=== PATIENT | male | born 1950 | race Caucasian/White ===

== ENCOUNTER 2018-01-21 14:01 | Outpatient (CLI) | payer MEDICARE, MEDICAID ==
[~2018-01-21] VITALS: Ht 167.6 cm; Wt 101.2 kg
[2018-01-21 14:05] VITALS: BP 141/75
[2018-01-21] MEDS ORDERED: PLAVIX75 MG ORAL (14:44)
[2018-01-21] MEDS ORDERED: METFORMIN500 MG/5 M PO (14:44)
[2018-01-21] MEDS ORDERED: METOPROLOL SUCC25 MG ORAL (14:44)
[2018-01-21] MEDS ORDERED: ASPIR 8181 MG ORAL (14:44)
[2018-01-21] MEDS ORDERED: ZANTAC150 MG ORAL (14:44)
--- NOTE | 2018-01-21 14:48 | GI Initial Consult Note ---
History of Present Illness General Date patient seen: Jan 21, 2018 Time patient seen: 14:41 Referring physician: EMILIO Reason for Consultation: ABDOMINAL PAIN, GERD Present Illness HPI 67 year old male presents today with c/o of abdominal pain, GERD, possible ? colitis. Denied any constipation or diarrhea. State his last colonoscopy was approximately [address] showed patient had gallstones. Denies any unintentional weight loss or changes in dietary habits. No signs of abuse or neglect. Patient is not fall risk. Home Meds Reported Medications Metoprolol Succinate* (METOPROLOL SUCCINATE*) 25 Mg Tab.er.24h, 25 MG ORAL DAILY , TAB 01/21/18 Clopidogrel Bisulfate* (PLAVIX*) 75 Mg Tablet, 75 MG ORAL DAILY, TAB 01/21/18 Aspirin* (ASPIR 81*) 81 Mg Tablet.dr, 81 MG ORAL DAILY, TAB 01/21/18 Metformin HCl (Metformin HCl) 500 Mg/5 Ml Solution, 500 MG PO 01/21/18 Ranitidine Hcl* (ZANTAC*) 150 Mg Tablet, 150 MG ORAL TWICE A DAY, TAB 01/21/18 Med list reviewed/reconciled: Yes Allergies: Coded Allergies: No Known Allergies (Unverified , 01/21/18) Patient History History Provided By: Patient, Medical Record PMH Narrative Gallstone CAD HTN DM Social History: Reports: smoking - quit, other - caffeine Review of Systems All Other Systems: negative except mentioned in HPI Physical Exam T 98.2 BP 141/25 P 86 96 RA HT 5'6 WT 223 lbs Sp02 EP Interpretation: reviewed, normal General Appearance: well appearing, no apparent distress, alert Head: normocephalic EENT: PERRL/EOMI, normal ENT inspection Neck: supple Respiratory: normal breath sounds, no respiratory distress Cardiovascular: normal rate Gastrointestinal: normal inspection, non tender, soft, normal bowel sounds, non -distended Rectal: deferred Genitourinary: deferred Musculoskeletal: normal inspection, back normal Neurologic: normal inspection, alert, oriented x3, responsive, cerebellar normal Psychiatric: normal inspection, judgement/insight normal, memory normal Skin: normal inspection, normal color, no rash, warm/dry, palpation normal, well hydrated Lymphatic: normal inspection, no adenopathy GI: Plan Problems: (1) GERD (gastroesophageal reflux disease) (2) Gallstone (3) Colonoscopy refused Plan Rx omeprazole Gallstone >> no treatment at this time given patient is asymptomatic recommend screening colonoscopy, the patient states he will contact us for appointment. Patient is on Plavix, which must be dc 3 days prior procedure. Seen with Dr. Espinal. Thank you for this patient referral. The patient was seen and examined at bedside and all new and available data was reviewed in the patients chart. I agree with the above findings, impression and plan. (Patient seen earlier today. Signature stamp does not reflect patient encounter time.). - MD Dianna GoodmanSc[facility] BLUE[facility] GROWER Jan 21, 2018 14:47
== END 2018-01-21 14:31 | disposition home or self-care (01) ==
LOC: PAN 14:01
DX: K21.9 Gastro-esophageal reflux disease without esophagitis (principal); K80.80 Other cholelithiasis without obstruction; I25.10 Atherosclerotic heart disease of native coronary artery without angina pectoris; I10 Essential (primary) hypertension; E11.9 Type 2 diabetes mellitus without complications; Z87.891 Personal history of nicotine dependence
CPT/HCPCS: 99202

== ENCOUNTER 2018-08-04 08:23 | Day surgery (SDC) | payer MEDICARE, MEDICAID ==
[~2018-08-04] VITALS: Ht 175.3 cm; Wt 97.1 kg
[2018-08-04] VITALS (9 sets, daily range): BP systolic 118–153; BP diastolic 53–77
[~2018-08-04 08:23] MED LIST: ASPIR 8181 MG ORAL; METFORMIN500 MG/5 M PO; METOPROLOL SUCC25 MG ORAL; PLAVIX75 MG ORAL; ZANTAC150 MG ORAL
[2018-08-04] MEDS ORDERED: METFORMIN HCL500 M1 ORAL (08:52)
[2018-08-04] MEDS ORDERED: VASCEPA1 GM PO (08:54)
[2018-08-04] MEDS ORDERED: DEXILANT60 MG ORAL (08:55)
[2018-08-04] MEDS ORDERED: Succinylcholine 20mg/ml 10ml vial ONE (09:21)
--- NOTE | 2018-08-04 09:29 | Short Stay Surgery H&P ---
History of Present Illness History of Present Illness Chief Complaint see recent office note HPI Yevgeniy Thompson is a 68 year old male who was admitted on for Abdominal Pain, Gerd Patient History Allergies: Coded Allergies: No Known Allergies (Unverified , 08/04/18) Medication History Scheduled Aspirin* (Aspir 81*), 81 MG ORAL DAILY, (Reported) Clopidogrel Bisulfate* (Plavix*), 75 MG ORAL DAILY, (Reported) Dexlansoprazole (Dexilant), 60 MG ORAL DAILY, (Reported) Icosapent Ethyl (Vascepa), 1 GM PO DAILY, (Reported) Metformin Hcl* (Metformin Hcl*), 500 MG ORAL TWICE A DAY, (Reported) Metoprolol Succinate* (Metoprolol Succinate*), 25 MG ORAL DAILY, (Reported) Discontinued Medications Ranitidine Hcl* (Zantac*), 150 MG ORAL TWICE A DAY, (Reported) Discontinued Reason: Pt stopped taking med Physical Exam Vital Signs Last Vital Signs Date Time Temp Pulse Resp B/P (MAP) Pulse Ox O2 Delivery O2 Flow Rate FiO2 08/04/18 08:56 Room Air 08/04/18 08:48 97.6 66 18 153/77 98 Plan Attestation Are the patient's medical conditions optimized for surgery? Migel Espinal MD Aug 04, 2018 09:29
--- NOTE | 2018-08-04 09:29 | Pre-Procedure Note/Attestation ---
Pre-Procedure Note/Attestation Complete Prior to Procedure Planned Procedure: not applicable Procedure Narrative: esophagogastroduodenoscopy and colonoscopy Indications for Procedure Pre-Operative Diagnosis: GERDE, screening colon Attestation I attest that I discussed the nature of the procedure; its benefits; risks and complications; and alternatives (and the risks and benefits of such alternatives ), prior to the procedure, with the patient (or the patient's legal medical billing representative). I attest that, if there was a reasonable possibility of needing a blood transfusion, the patient (or the patient's legal medical billing representative) was given the [facility] of Health Services standardized written summary, pursuant to the [place] Blood Safety Act ([place] Health and Safety Code # 1645, as amended). I attest that I re-evaluated the patient just prior to the surgery and that there has been no change in the patient's H&P, except as documented below: Migel Espinal MD Aug 04, 2018 09:29
[2018-08-04] MEDS ORDERED: Propofol 200mg/20ml IV ONE ×2 (09:30)
[2018-08-04] MEDS ORDERED: Lidocaine 1% MPF 10mg/ml 5ml ONE ×2 (09:30)
--- NOTE | 2018-08-04 09:45 | Anethesia Preoperative Eval ---
Anesthesia Pre-op PMH/ROS General Date of Evaluation: Aug 04, 2018 Time of Evaluation: 09:31 Anesthesiologist: Siena Garcia CRNA ASA Score: ASA 3 Mallampati Score Class I : Soft palate, uvula, fauces, pillars visible Class II: Soft palate, uvula, fauces visible Class III: Soft palate, base of uvula visible Class IV: Only hard plate visible Mallampati Classification: Class III Surgeon: Kylie Diagnosis: colon screening Surgical Procedure: Diagnostic colonoscopy Anesthesia History: none Social History: smoking Family History: no anesthesia problems Allergies: Coded Allergies: No Known Allergies (Unverified , 08/04/18) Medications: see eMAR Patient NPO?: Yes NPO Date: Aug 04, 2018 NPO Time: 00:00 Past Medical History Cardiovascular: Reports: HTN, CAD, other - s/p cardiac cath, stent x 1; Denies: ID, valve dz, arrhythmia Gastrointestinal/Genitourinary: Reports: GERD Neurologic/Psychiatric: Denies: dementia, CVA, depression/anxiety, TIA, other Endocrine: Reports: DM; Denies: hypothyroidism, steroids, other HEENT: Denies: cataract (L), cataract (R), glaucoma, [place] (L), [place] (R), other Hematology/Immune: Denies: anemia, DVT, bleeding disorder, other Musculoskeletal/Integumentary: Reports: OA; Denies: RA, DJD, DDD, edema, other Other: obesity PMH Narrative: as noted above PSxH Narrative: cardiac cath Anesthesia Pre-op Phys. Exam Physician Exam Last Vital Signs Date Time Temp Pulse Resp B/P (MAP) Pulse Ox O2 Delivery O2 Flow Rate FiO2 08/04/18 08:56 Room Air 08/04/18 08:48 97.6 66 18 153/77 98 Constitutional: NAD Neurologic: other - alert & oriented Cardiovascular: RRR Respiratory: CTA Gastrointestinal: S/NT/ND Airway Exam Mallampati Score: Class III MO: full Neck: no limitations TMD: > 3 FB ROM: full Teeth: intact Dentures: no upper, no lower Anesthesia Pre-op A/P Labs Accucheck 116 Studies Pre-op Studies: EKG - SR with 1st degree AV block Risk Assessment & Plan Assessment: ASA 3, ok to proceed Plan: MAC Status Change Before Surgery: No Pre-Antibiotics Given Within 1 Hr of Incision: Siena Li CRNA Aug 04, 2018 09:45
--- NOTE | 2018-08-04 09:55 | Endoscopy Procedure Note ---
Endoscopy Procedure Note General Indication for Procedure: screening Procedures Performed: colonoscopy Operative Findings/Diagnosis: hemorrhoids Specimen: none Pt Tolerated Procedure Well: Yes Estimated Blood Loss: none Anesthesia Anesthesiologist: liat Anesthesia: MAC Inserted Devices Implant(s) used?: No Quality Quality of Bowel Preparation: Good Did scope reach the cecum?: Yes Was there any complications?: No GI Core Measures 50 yrs or older w/o bx or poly: No 10yrs. F/U not recommended: Yes If not recommended, why?: Above average risk 10 yrs. F/U needed: Yes 18 years or older w/prev. colo: No Migel Espinal MD Aug 04, 2018 09:55
--- NOTE | 2018-08-04 10:06 | Immediate Post-Op Evaluation ---
Immediate Post-Op Evalulation Immediate Post-Op Evalulation Procedure: Diagnostic colonoscopy Date of Evaluation: Aug 04, 2018 Time of Evaluation: 10:01 IV Fluids: 0.9 NS 400 ml Blood Pressure Systolic: 118 Blood Pressure Diastolic: 54 Pulse Rate: 60 Respiratory Rate: 16 O2 Sat by Pulse Oximetry: 98 Temperature (Fahrenheit): 97.6 Pain Score (1-10): 0 Nausea: No Vomiting: No Complications none Patient Status: awake, reacts Hydration Status: adequate Given Within 1 Hr of Incision: Siena Li CRNA Aug 04, 2018 10:06
--- NOTE | 2018-08-04 12:15 | Procedure Note ---
DATE OF PROCEDURE: 08/04/2018 SURGEON: Migel Espinal M.D. PROCEDURE: Colonoscopy. ANESTHESIA: Per Siena HANSON. INSTRUMENT: Olympus adult flexible colonoscope. INDICATION: Screening colonoscopy. REASON FOR PROCEDURE: The procedure, risks, benefits, and possible consequences, including hemorrhage, aspiration, perforation and infection, and alternative treatments, were explained to the patient/legal guardian by Dr. Migel Espinal and the patient/legal guardian understood and accepted these risks. PROCEDURE IN DETAIL: After informed consent was obtained and the patient was adequately sedated. First rectal exam was performed, which was positive for internal hemorrhoids. Then, the scope was advanced from rectum into the cecum documented by appendiceal orifice, ileocecal valve, and right upper quadrant palpation. Quality of prep was good. The patient had normal colonoscopy examination. No obvious mass, polyp, or any other pathology seen. Retroflexion of rectum showed evidence of internal hemorrhoids. The patient tolerated the procedure well without any complication. SUMMARY OF FINDINGS: Normal colonoscopy examination except for internal hemorrhoids. RECOMMENDATIONS: Repeat colonoscopy in five years. Migel Espinal M.D. DR: YUE JOB#: [id number] CC:
--- NOTE | 2018-08-04 13:09 | 48 Hour Post Anesthesia Eval ---
Post Anesthesia Evaluation Procedure: Diagnostic colonoscopy Date of Evaluation: Aug 04, 2018 Time of Evaluation: 13:08 Blood Pressure Systolic: 124 0: 53 Pulse Rate: 60 Respiratory Rate: 16 Temperature (Fahrenheit): 97.9 O2 Sat by Pulse Oximetry: 96 Airway: patent Nausea: No Vomiting: No Pain Intensity: 0 Hydration Status: adequate Cardiopulmonary Status: stable Mental Status/LOC: patient returned to baseline Follow-up Care/Observations: per GI Post-Anesthesia Complications: none Follow-up care needed: N/A Siena Garcia CRNA Aug 04, 2018 13:09
--- NOTE | 2018-08-06 13:20 | Cardiology Report ---
APPROVED REPORT EKG Measurement Heart [id number] NV [id number] Sinus rhythm with 1st degree AV block Otherwise normal ECG
== END 2018-08-04 11:10 | disposition home or self-care (01) ==
LOC: GAS 08:23
DX: Z12.11 Encounter for screening for malignant neoplasm of colon (principal); K64.8 Other hemorrhoids; Z79.82 Long term (current) use of aspirin; K21.9 Gastro-esophageal reflux disease without esophagitis; Z79.84 Long term (current) use of oral hypoglycemic drugs; E11.9 Type 2 diabetes mellitus without complications; I11.9 Hypertensive heart disease without heart failure; I25.10 Atherosclerotic heart disease of native coronary artery without angina pectoris; M19.90 Unspecified osteoarthritis, unspecified site; Z95.5 Presence of coronary angioplasty implant and graft; I44.0 Atrioventricular block, first degree
CPT/HCPCS: 82962; 93005; G0121; J0330; J2704; 94003; 94150

== ENCOUNTER 2020-02-01 12:57 | Outpatient (CLI) | payer MEDICARE, MEDICAID ==
[~2020-02-01 12:57] MED LIST changes: +DEXILANT60 MG ORAL; +METFORMIN HCL500 M1 ORAL; +VASCEPA1 GM PO
[2020-02-01 13:18] VITALS: BP 126/69
[2020-02-01] MEDS ORDERED: METFORMIN HCL1000 M1 ORAL (13:23)
--- NOTE | 2020-02-01 15:37 | General Progress Note ---
Subjective ROS Limited/Unobtainable: Yes Allergies: Coded Allergies: No Known Allergies (Unverified , 08/04/18) Objective Last 24 Hour Vital Signs Date Time Temp Pulse Resp B/P (MAP) Pulse Ox O2 Delivery O2 Flow Rate FiO2 02/01/20 13:18 97.1 77 16 126/69 98 General Appearance: alert EENT: PERRL/EOMI Neck: normal alignment Cardiovascular: normal rate Respiratory/Chest: decreased breath sounds Abdomen: soft, hypoactive bowel sounds, tender Extremities: non-tender Assessment/Plan Problem List: (1) GERD (gastroesophageal reflux disease) ICD Codes: K21.9 - Gastro-esophageal reflux disease without esophagitis SNOMED: 959934451 (2) Gallstone ICD Codes: K80.20 - Calculus of gallbladder without cholecystitis without obstruction SNOMED: 615418722 Assessment/Plan: s/p partial cholecystectomy elevayed LFTS RUQ pain CT reviewed repeat labs MRCP possible ERCP if needed Migel Espinal MD Feb 01, 2020 15:37
== END 2020-02-01 14:57 | disposition home or self-care (01) ==
LOC: PAN 12:57
DX: K21.9 Gastro-esophageal reflux disease without esophagitis (principal); K80.20 Calculus of gallbladder without cholecystitis without obstruction; Z90.49 Acquired absence of other specified parts of digestive tract; R94.5 Abnormal results of liver function studies; R10.11 Right upper quadrant pain
CPT/HCPCS: 99212

== ENCOUNTER 2020-02-29 13:03 | Outpatient (CLI) | payer MEDICARE, MEDICAID ==
[~2020-02-29 13:03] MED LIST changes: +METFORMIN HCL1000 M1 ORAL
--- NOTE | 2020-02-29 15:24 | General Progress Note ---
Subjective ROS Limited/Unobtainable: Yes Allergies: Coded Allergies: No Known Allergies (Unverified , 08/04/18) Objective General Appearance: alert EENT: normal ENT inspection Neck: supple Cardiovascular: normal rate Respiratory/Chest: lungs clear Abdomen: normal bowel sounds, non tender, soft Extremities: non-tender Assessment/Plan Assessment/Plan: Assessment/Plan Problem List: (1) GERD (gastroesophageal reflux disease) ICD Codes: K21.9 - Gastro-esophageal reflux disease without esophagitis SNOMED: 147369019 (2) Gallstone ICD Codes: K80.20 - Calculus of gallbladder without cholecystitis without obstruction SNOMED: 131780450 Assessment/Plan: s/p partial cholecystectomy elevayed LFTS>> improving RUQ pain CT reviewed MRCP reviewed D/W surg plan EGD and EUS Migel Espinal MD Feb 29, 2020 15:24
== END 2020-02-29 15:03 | disposition home or self-care (01) ==
LOC: PAN 13:03
DX: K21.9 Gastro-esophageal reflux disease without esophagitis (principal); K80.20 Calculus of gallbladder without cholecystitis without obstruction; Z90.49 Acquired absence of other specified parts of digestive tract; R79.89 Other specified abnormal findings of blood chemistry; R10.11 Right upper quadrant pain
CPT/HCPCS: 99212

== ENCOUNTER 2020-03-21 09:14 | Day surgery (SDC) | payer MEDICARE, MEDICAID ==
[2020-03-21] VITALS (9 sets, daily range): BP systolic 121–142; BP diastolic 59–84
[~2020-03-21] VITALS: Ht 182.9 cm; Wt 97.1 kg
[~2020-03-21 09:14] MED LIST changes: +LR 1000ml 1,000 ML IVLG SCH
[2020-03-21] MEDS ORDERED: Midazolam 2mg/2ml Inj ONE (10:12)
[2020-03-21] MEDS ORDERED: fentaNYL 100 mcg/2 mL IV ONE (10:12)
[2020-03-21] MEDS ORDERED: LR 1000ml ONE (10:30)
--- NOTE | 2020-03-21 10:30 | Short Stay Surgery H&P ---
History of Present Illness History of Present Illness Chief Complaint abd pain HPI Yevgeniy Thompson is a 69 year old male who was admitted on for Gerd, Abdominal Pain, Gall Stone Patient History Allergies: Coded Allergies: No Known Allergies (Unverified , 03/19/20) PAST MEDICAL HISTORY: (1) GERD (gastroesophageal reflux disease) (2) Gallstone Medication History Scheduled Aspirin* (Aspir 81*), 81 MG ORAL DAILY, (Reported) Clopidogrel Bisulfate* (Plavix*), 75 MG ORAL DAILY, (Reported) Dexlansoprazole (Dexilant), 60 MG ORAL DAILY, (Reported) Icosapent Ethyl (Vascepa), 1 GM PO DAILY, (Reported) Metformin Hcl* (Metformin Hcl*), 1,000 MG ORAL DAILY, (Reported) Metoprolol Succinate* (Metoprolol Succinate*), 25 MG ORAL DAILY, (Reported) Review of Systems Cardiovascular: Reports: no symptoms Respiratory: Reports: no symptoms Skeletal: Reports: no symptoms Gastrointestinal: Reports: gastro esophageal reflux disease Genitourinary: Reports: no symptoms Neurologic: Reports: no symptoms Endocrine: Reports: no symptoms Hematologic: Reports: no symptoms Physical Exam Vital Signs Last Vital Signs Date Time Temp Pulse Resp B/P (MAP) Pulse Ox O2 Delivery O2 Flow Rate FiO2 03/21/20 10:04 97.0 59 20 142/84 99 Room Air Labs Laboratory Tests Test 03/21/20 09:50 POC Whole Blood Glucose 138 MG/DL (74-106) H Total Bilirubin Pending Direct Bilirubin Pending Aspartate Amino Transf (AST/SGOT) Pending Alanine Aminotransferase (ALT/SGPT) Pending Alkaline Phosphatase Pending Total Protein Pending Albumin Pending Skin: normal HENT: normal Heart: normal Lungs: normal Abdomen: normal Extremities: normal Plan Plan of Care egd/EUS Attestation Are the patient's medical conditions optimized for surgery? Attestation Response: yes Migel Espinal MD Mar 21, 2020 10:30
--- NOTE | 2020-03-21 10:30 | Pre-Procedure Note/Attestation ---
Pre-Procedure Note/Attestation Complete Prior to Procedure Planned Procedure: not applicable Procedure Narrative: egd/EUS Indications for Procedure Pre-Operative Diagnosis: abd pain Attestation I attest that I discussed the nature of the procedure; its benefits; risks and complications; and alternatives (and the risks and benefits of such alternatives), prior to the procedure, with the patient (or the patient's legal distribution sales representative). I attest that, if there was a reasonable possibility of needing a blood transfus ion, the patient (or the patient's legal distribution sales representative) was given the [facility] of Health Services standardized written summary, pursuant to the [place] Blood Safety Act ([place] Health and Safety Code # 1645, as amended). I attest that I re-evaluated the patient just prior to the surgery and that there has been no change in the patient's H&P, except as documented below: Migel Espinal MD Mar 21, 2020 10:29
[2020-03-21 10:52] LABS: ALANINE AMINOTRANSFERASE 85 U/L (12-78); ALKALINE PHOSPHATASE 75 U/L (46-116); ASPARTATE AMINO TRANSFERASE 40 U/L (15-37); BILIRUBIN,DIRECT 0.3 MG/DL (0.0-0.3); BILIRUBIN,TOTAL 1.1 MG/DL (0.2-1.0)
--- NOTE | 2020-03-21 10:53 | Anethesia Preoperative Eval ---
Anesthesia Pre-op PMH/ROS General Date of Evaluation: Mar 21, 2020 Time of Evaluation: 10:25 Anesthesiologist: Maricruz ASA Score: ASA 3 Mallampati Score Class I : Soft palate, uvula, fauces, pillars visible Class II: Soft palate, uvula, fauces visible Class III: Soft palate, base of uvula visible Class IV: Only hard plate visible Mallampati Classification: Class III Surgeon: Kylie Diagnosis: Abdominal pain Surgical Procedure: EGD with EUS Anesthesia History: none Social History: smoking - h/o Family History: no anesthesia problems Allergies: Coded Allergies: No Known Allergies (Unverified , 03/19/20) Medications: see eMAR Patient NPO?: Yes Past Medical History Cardiovascular: Reports: HTN, CAD - stents in place no recent CP; Denies: PR, valve dz, arrhythmia, other Pulmonary: Denies: asthma, COPD, SIOBH[place], other Gastrointestinal/Genitourinary: Reports: GERD, other - kidney stones; Denies: CRI, ESRD Neurologic/Psychiatric: Denies: dementia, CVA, depression/anxiety, TIA, other Endocrine: Reports: DM - on pills HEENT: Denies: cataract (L), cataract (R), glaucoma, [place] (L), [place] (R), other Hematology/Immune: Denies: anemia, DVT, bleeding disorder, other Musculoskeletal/Integumentary: Denies: OA, RA, DJD, DDD, edema, other PMH Narrative: as above PSxH Narrative: see H&P Anesthesia Pre-op Phys. Exam Physician Exam Last Vital Signs Date Time Temp Pulse Resp B/P (MAP) Pulse Ox O2 Delivery O2 Flow Rate FiO2 03/21/20 10:04 97.0 59 20 142/84 99 Room Air Constitutional: NAD Neurologic: CN 2-12 intact Cardiovascular: RRR, no M/R/G Gastrointestinal: S/NT/ND Airway Exam Mallampati Score: Class III MO: limited Neck: short ROM: limited Teeth: intact Dentures: no upper, no lower Anesthesia Pre-op A/P Labs Chemistry Test 03/21/20 09:50 POC Whole Blood Glucose 138 MG/DL (74-106) H Total Bilirubin Pending Direct Bilirubin Pending Aspartate Amino Transf (AST/SGOT) Pending Alanine Aminotransferase (ALT/SGPT) Pending Alkaline Phosphatase Pending Total Protein Pending Albumin Pending Studies Pre-op Studies: EKG - NSR Risk Assessment & Plan Assessment: ASA 3 Plan: MAC Status Change Before Surgery: Trung Pickett MD Mar 21, 2020 10:53
[2020-03-21] MEDS ORDERED: LR 1000ml 1,000 ML IVLG SCH (11:00)
[2020-03-21] MEDS ORDERED: fentaNYL 100 mcg/2 mL IV PRN (11:00)
--- NOTE | 2020-03-21 11:23 | Immediate Post-Op Evaluation ---
Immediate Post-Op Evalulation Immediate Post-Op Evalulation Procedure: EGD with EUS Date of Evaluation: Mar 21, 2020 Time of Evaluation: 11:22 IV Fluids: 400 Blood Products: none Estimated Blood Loss: none Urinary Output: none Blood Pressure Systolic: 123 Blood Pressure Diastolic: 65 Pulse Rate: 58 Respiratory Rate: 18 O2 Sat by Pulse Oximetry: 99 Temperature (Fahrenheit): 97.6 Pain Score (1-10): 1 Nausea: No Vomiting: No Complications none Patient Status: reacts, patent, none Hydration Status: adequate Trung Alcantara MD Mar 21, 2020 11:23
--- NOTE | 2020-03-21 11:57 | Endoscopy Procedure Note ---
Endoscopy Procedure Note General Indication for Procedure: elevated LFTS, abd pain Procedures Performed: other - EUS Operative Findings/Diagnosis: gastritis Specimen: yes Pt Tolerated Procedure Well: Yes Estimated Blood Loss: none Anesthesia Anesthesiologist: suman Anesthesia: MAC Inserted Devices Implant(s) used?: No GI Core Measures 50 yrs or older w/o bx or poly: Not Applicable 10yrs. F/U recommended: Not Applicable Migel Espinal MD Mar 21, 2020 11:57
--- NOTE | 2020-03-21 12:06 | 48 Hour Post Anesthesia Eval ---
Post Anesthesia Evaluation Procedure: EGD with EUS Date of Evaluation: Mar 21, 2020 Time of Evaluation: 12:05 Blood Pressure Systolic: 128 0: 68 Pulse Rate: 64 Respiratory Rate: 20 Temperature (Fahrenheit): 97.6 O2 Sat by Pulse Oximetry: 98 Airway: patent Nausea: No Vomiting: No Pain Intensity: 1 Hydration Status: adequate Cardiopulmonary Status: stable Mental Status/LOC: patient returned to baseline Follow-up Care/Observations: n/a Post-Anesthesia Complications: none Follow-up care needed: ready to discharge Trung Alcantara MD Mar 21, 2020 12:06
--- NOTE | 2020-03-21 14:30 | Procedure Note ---
DATE OF PROCEDURE: 03/21/2020 SURGEON: Migel Espinal MD. PROCEDURE: Upper endoscopy with biopsy, endoscopic ultrasound. ANESTHESIOLOGIST: Per Dr. Alcantara. INSTRUMENT: Olympus adult flexible upper endoscope and EUS scope. INDICATION: 1. Right upper quadrant abdominal pain. 2. Abnormal liver function tests. REASON FOR PROCEDURE: The procedure, risks, benefits, and possible consequences, including hemorrhage, aspiration, perforation and infection, and alternative treatments, were explained to the patient/legal guardian by Dr. Migel Espinal and the patient/legal guardian understood and accepted these risks. DESCRIPTION OF PROCEDURE: After informed consent was obtained and the patient was adequately sedated, Olympus upper endoscope was advanced from mouth into the second portion of the duodenum and retroflexion was performed in the stomach. The patient had mild diffuse gastritis. Random biopsy from antrum was obtained to rule out H. pylori infection. The patient also had a small hiatal hernia. At this time, the upper endoscope was retrieved and then EUS scope was introduced. Starting scanning at GE junction, first pancreatic body and tail was examined. Then, the scope was advanced to the duodenal bulb and second portion of the duodenum where the pancreatic head was examined. The patient had common bile duct about 4.5 mm in size. No obvious stone seen in the common bile duct. The stone seen in the cystic duct stump which was seen on MRI and CT, I could not see on this EUS, most probably contracted and not very visible. The patient had prominent ampulla. The ampulla was measured roughly about 1.2 cm in size, otherwise no obvious stone seen in the ampulla. SUMMARY OF FINDINGS: 1. Gastritis, status post biopsy. 2. Normal common bile duct about 4.5 mm without any stone in it. The cystic duct stump with stones which was seen with imaging studies not seen in this EUS study. 3. The patient had prominent ampulla of the unknown significance which measured about 1.2 cm, possibility would be either fold at the ampulla, just irregular prominent ampulla versus early growing tumor. RECOMMENDATIONS: 1. The patient to follow with surgery, Dr. Chirag Ozuna for removal of the remnant of the stones in the cystic duct stump if it is needed. 2. We are going to repeat liver function tests today and order CA 19-9. The patient will need followup maybe in 6 months with either MRI or MRCP to evaluate for the ampulla again. I want to thank Dr. Chirag Ozuna, for this kind referral. Migel Espinal M.D. DR: Lora JOB#: [id number] CC: Chirag Ozuna MD
== END 2020-03-21 12:20 | disposition home or self-care (01) ==
LOC: GAS 09:14
DX: K29.70 Gastritis, unspecified, without bleeding (principal); R94.5 Abnormal results of liver function studies; K21.9 Gastro-esophageal reflux disease without esophagitis; Z79.82 Long term (current) use of aspirin; Z79.899 Other long term (current) drug therapy; Z79.84 Long term (current) use of oral hypoglycemic drugs; I11.9 Hypertensive heart disease without heart failure; I25.10 Atherosclerotic heart disease of native coronary artery without angina pectoris; Z95.5 Presence of coronary angioplasty implant and graft; E11.9 Type 2 diabetes mellitus without complications
CPT/HCPCS: 36415; 43231; 43239; 80076; 82962; 93005; 94003; J2250; J2704; J3010; J7120; U0002; 94150

== ENCOUNTER 2020-03-27 09:01 | Outpatient (CLI) | payer MEDICARE, MEDICAID ==
[~2020-03-27 09:01] MED LIST changes: -LR 1000ml 1,000 ML IVLG SCH
--- NOTE | 2020-03-27 12:37 | General Progress Note ---
Subjective ROS Limited/Unobtainable: Yes Allergies: Coded Allergies: No Known Allergies (Unverified , 03/19/20) Objective General Appearance: alert EENT: normal ENT inspection Neck: supple Cardiovascular: normal rate Respiratory/Chest: decreased breath sounds Abdomen: normal bowel sounds, non tender, soft Extremities: non-tender Assessment/Plan Assessment/Plan: SUMMARY OF FINDINGS: 1. Gastritis, status post biopsy. 2. Normal common bile duct about 4.5 mm without any stone in it. The cystic duct stump with stones which was seen with imaging studies not seen in this EUS study. 3. The patient had prominent ampulla of the unknown significance which measured about 1.2 cm, possibility would be either fold at the ampulla, just irregular prominent ampulla versus early growing tumor. RECOMMENDATIONS: 1. The patient to follow with surgery, Dr. Chirag Ozuna for removal of the remnant of the stones in the cystic duct stump if it is needed. improving LFTS and abd pain repeat EUS or MRCP in one year Migel Espinal MD Mar 27, 2020 12:37
== END 2020-03-27 11:01 | disposition home or self-care (01) ==
LOC: PAN 09:01
DX: K29.50 Unspecified chronic gastritis without bleeding (principal); R10.9 Unspecified abdominal pain
CPT/HCPCS: 99212